=== PATIENT | female | born 1980 | race African-American/Black ===

== ENCOUNTER 2017-05-24 09:01 | Emergency (ER) | payer MEDICAID, OTHER ==
[2017-05-24 09:07] VITALS: BP 134/87
== END 2017-05-24 11:19 | disposition home or self-care (01) ==
LOC: ER 09:58
DX: G89.29 Other chronic pain (principal); M25.561 Pain in right knee; J45.909 Unspecified asthma, uncomplicated; Z98.890 Other specified postprocedural states
CPT/HCPCS: 99283

== ENCOUNTER 2025-02-21 16:10 | Emergency (ER) | payer MEDICAID ==
[~2025-02-21] VITALS: Ht 175.3 cm; Wt 90.0 kg
[2025-02-21 16:23] VITALS: O2SAT 99
[2025-02-21 18:08] LABS: BASOPHILS % 1.0 % (0.0-2.0); EOSINOPHILS % 0.6 % (0.0-5.0); HEMATOCRIT. 34.8 % (36.0-48.0); HEMOGLOBIN. 11.0 g/dL (12.0-16.0); LYMPHOCYTES % 37.2 % (20.0-50.0); MEAN PLATELET VOLUME 9.1 fl (7.4-10.4); MONOCYTES % 6.1 % (2.0-8.0); NEUTROPHILS % 55.1 % (40.0-76.0); PLATELET 241 x1000/uL (130-400); RED BLOOD CELL COUNT 4.12 mill/uL (4.2-5.4); RED CELL DISTRIBUTION WIDTH 16.8 % (11.6-14.6)
[2025-02-21 18:31] LABS: CREATININE 0.8 mg/dL (0.6-1.0); UREA NITROGEN BLOOD 6 mg/dL (9-23)
[2025-02-21 18:32] LABS: HCG SCREEN NEGATIVE; PROTEIN TOTAL 7.2 g/dL (6.0-8.3)
[2025-02-21 18:33] LABS: ASPARTATE AMINOTRANSFERASE 16 IU/L (<34); BILIRUBIN DIRECT < 0.1 mg/dL (<=3.0); BILIRUBIN TOTAL 0.3 mg/dL (0.1-1.0)
[2025-02-21 19:11] LABS: CLARITY URINE CLEAR (CLEAR); COLOR URINE RED (YELLOW); GLUCOSE URINE NEGATIVE (NEGATIVE); KETONES URINE NEGATIVE (NEGATIVE); LEUKOCYTE ESTERASE URINE NEGATIVE (NEGATIVE); NITRITE URINE NEGATIVE (NEGATIVE); OCCULT BLOOD URINE 3+ (NEGATIVE); PH URINE 7.5 (4.5-8.0); PROTEIN URINE NEGATIVE (NEGATIVE); SPECIFIC GRAVITY URINE 1.014 (1.005-1.030); UROBILINOGEN URINE 0.2 E.U./dL (0.2-1.0)
[2025-02-21 19:28] LABS: BACTERIA URINE TRACE; RBC URINE TNTC /hpf (0-2); SQUAMOUS EPITHELIAL CELL URINE FEW /lpf (RARE/1+); WBC URINE NONE SEEN /hpf (0-2)
[2025-02-21 20:50] LABS: T4 FREE 1.05 ng/dL (0.89-1.76)
[2025-02-21] MEDS ORDERED: OFLO5DRO4 LEFT EAR (20:56)
[2025-02-21] MEDS: POTASSIUM CHLORIDE 10MEQ TABLET SR PO ONE (21:15)
[2025-02-21 21:16] VITALS: BP 155/60; PULSE 77; RESP 15; TEMP 36.6; O2SAT 100
[2025-02-21] MEDS: IBUPROFEN 600MG TABLET PO ONE (21:16)
== END 2025-02-21 21:20 | disposition home or self-care (01) ==
LOC: ER 16:10
DX: R00.2 Palpitations (principal); E78.00 Pure hypercholesterolemia, unspecified; I10 Essential (primary) hypertension; J45.909 Unspecified asthma, uncomplicated; G43.909 Migraine, unspecified, not intractable, without status migrainosus
CPT/HCPCS: 36415; 71045; 80048; 80076; 81003; 84439; 84443; 84481; 84703; 85025; 93005; 99285